=== PATIENT | female | born 1935 | race Caucasian/White ===

== ENCOUNTER 2017-01-02 14:42 | Emergency (ER) | payer OTHER, MEDICARE ==
[~2017-01-02] VITALS: Ht 162.6 cm; Wt 68.0 kg
[2017-01-02 14:48] VITALS: BP 127/97
[2017-01-02] MEDS ORDERED: ACYCLOVIR 400400 MG PO ×2 (15:22→15:27)
[2017-01-02] MEDS ORDERED: NORCO 5-325 TA1 EACH PO ×2 (15:22→15:27)
[2017-01-02] MEDS ORDERED: ATIVAN1 MG PO (15:49)
[2017-01-02] MEDS ORDERED: VENLAFAXIN75 MG/1 T2 PO (15:50)
== END 2017-01-02 15:25 | disposition home or self-care (01) ==
LOC: ER 14:42
DX: B02.9 Zoster without complications (principal); Z90.710 Acquired absence of both cervix and uterus; Z98.890 Other specified postprocedural states; Z96.652 Presence of left artificial knee joint; Z88.2 Allergy status to sulfonamides; Z88.0 Allergy status to penicillin; Z87.891 Personal history of nicotine dependence